=== PATIENT | male | born 1985 | race Two or more races ===

== ENCOUNTER 2023-06-04 06:45 | Day surgery (SDC) | payer OTHER ==
[~2023-06-04 06:45] MED LIST: Dextrose 5%-0.45% NaCl 1,000 ML IV SCH
[2023-06-04] MEDS ORDERED: Midazolam 1 MG/ML 2 ML SDV ONE ×2 (07:10→08:39)
[2023-06-04] MEDS ORDERED: fentaNYL 100 MCG/2 ML SDV ONE (07:10)
[2023-06-04] MEDS ORDERED: fentaNYL 100 MCG/2 ML SDV IV ONE ×2 (08:19→08:20)
[2023-06-04] MEDS ORDERED: Midazolam 1 MG/ML 2 ML SDV IV ONE ×4 (08:20→08:22)
== END 2023-06-04 09:48 | disposition home or self-care (01) ==
LOC: DL.ENDO 06:45
PROVIDERS: ATTEND Internal Medicine Gastroenterology
DX: K29.50 Unspecified chronic gastritis without bleeding (principal); E66.09 Other obesity due to excess calories; E73.9 Lactose intolerance, unspecified; Z98.890 Other specified postprocedural states; Z68.30 Body mass index [BMI] 30.0-30.9, adult
CPT/HCPCS: 87077; J2250; J3010; J7042